=== PATIENT | male | born 1975 | race Caucasian/White ===

== ENCOUNTER 2017-03-14 13:36 | Emergency (ER) | payer SELFPAY ==
[~2017-03-14] VITALS: Ht 175.3 cm; Wt 93.5 kg
[2017-03-14 13:48] VITALS: BP 136/86; PULSE 77; RESP 20; TEMP 97.9; O2SAT 97
[2017-03-14] MEDS ORDERED: TRAZ50TA12 PO (13:58)
[2017-03-14] MEDS ORDERED: INVE1.5T PO (13:58)
--- NOTE | 2017-03-14 14:01 | PD ---
HPI Chief Complaint: Flank/Kidney Pain Time Seen by Provider: 13:52 (Polo Abbasi MD) Travel History International Travel<30 days: No Contact w/Intl Traveler<30days: No Traveled to known affect area: No (Polo Abbasi MD) History of Present Illness HPI 41-year-old male complaining of right-sided chest wall pain. Patient states that he had transient chest wall pain which lasted 2 days last week. Patient states that the right-sided chest wall pain came back again today. Patient states the pain is sharp stabbing pain localized to right chest wall. Patient denies any pain radiation. Patient states the pain is worse with deep breathing and movement of the right upper extremity. Patient denies any shortness of breath. Patient denies any coughing congestion. Patient denies history of COPD or asthma. On a scale of 1-10 the pain is an 8. (Polo Abbasi MD) Allergies-Medications (Allergen,Severity, Reaction): Coded Allergies: No Known Allergies (Unverified , 03/14/17) Reported Meds & Prescriptions Reported Meds & Active Scripts Active Robaxin (Methocarbamol) 750 Mg Tab 750 Mg PO QID Mobic (Meloxicam) 15 Mg Tab 15 Mg PO DAILY Reported Invega (Paliperidone ER) 1.5 Mg Tab 1.5 Mg PO DAILY Trazodone (Trazodone HCl) 50 Mg Tab 200 Mg PO HS (Ese Heck) Review of Systems General / Constitutional: No: Fever Eyes: No: Visual changes HENT: No: Headaches Cardiovascular: Positive: Chest Pain or Discomfort Respiratory: No: Shortness of Breath Gastrointestinal: No: Abdominal Pain Genitourinary: No: Dysuria Musculoskeletal: No: Pain Skin: No Rash Neurologic: No: Weakness Psychiatric: No: Depression Endocrine: No: Polydipsia Hematologic/Lymphatic: No: Easy Bruising (Polo Abbasi MD) Physical Exam Narrative GENERAL: Well-nourished, well-developed patient. SKIN: Focused skin assessment warm/dry. HEAD: Normocephalic. EYES: No scleral icterus. No injection or drainage. NECK: Supple, trachea midline. No JVD or lymphadenopathy. CARDIOVASCULAR: Regular rate and rhythm without murmurs, gallops, or rubs. RESPIRATORY: Breath sounds equal bilaterally. No accessory muscle use. GASTROINTESTINAL: Abdomen soft, non-tender, nondistended. MUSCULOSKELETAL: Patient has moderate tenderness on palpation right chest wall area. No crepitus or deformity noted. Breath sounds equal bilaterally. No rash noted. BACK: Nontender without obvious deformity. No CVA tenderness. Neurologic exam normal. (Polo Abbasi MD) Data Data Last Documented VS Vital Signs Date Time Temp Pulse Resp B/P Pulse Ox O2 Delivery O2 Flow Rate FiO2 03/14/17 14:48 97.9 75 20 129/80 99 Room Air (Ese Heck) Orders Chest, Single Ap (03/14/17 13:55) Ibuprofen (Motrin) (03/14/17 14:45) (Ese Heck) MDM Medical Decision Making Medical Screen Exam Complete: Yes Emergency Medical Condition: Yes Interpretation(s) 1434 PM. Chest x-ray shows no acute pathology. Differential Diagnosis Differential diagnosis including musculoskeletal, pleurisy, pneumothorax, pneumonia, PE Narrative Course 41-year-old male with right-sided chest wall pain. (Polo Abbasi MD) Diagnosis Primary Impression: Chest wall pain Patient Instructions: General Instructions Additional Instructions: Take medications as needed for pain. Follow-up with personal physician. Return if increasing chest pain shortness of breath. Off work today and tomorrow. Med/Other Pt SpecificInfo: Prescription(s) given (Polo Abbasi MD) Scripts Methocarbamol (Robaxin)750 Mg [id number] Mg PO QID #40 TAB Prov:Polo Abbasi MD 03/14/17 Meloxicam (Mobic)15 Mg Tab15 Mg PO DAILY #20 TAB Prov:Polo Abbasi MD 03/14/17 Disposition: 01 DISCHARGE HOME Condition: Stable Polo Abbasi MD March 14, 2017 14:01 Ese Heck March 14, 2017 14:32 Med/Other Pt SpecificInfo: Prescription(s) given (Polo Abbasi MD) Scripts Methocarbamol (Robaxin)750 Mg Nig073 Mg PO QID #40 TAB Prov:Polo Abbasi MD 03/14/17 Meloxicam (Mobic)15 Mg Tab15 Mg PO DAILY #20 TAB Prov:Polo Abbasi MD 03/14/17 Disposition: 01 DISCHARGE HOME Condition: Stable Polo Abbasi MD March 14, 2017 14:01 Ese Heck March 14, 2017 14:32
--- NOTE | 2017-03-14 14:34 | RADRPT ---
EXAM DATE/TIME: 03/14/2017 13:58 [facility] COMPARISON: No previous studies available for comparison. INDICATIONS : Chest pain. MEDICAL HISTORY : None. SURGICAL HISTORY : None. ENCOUNTER: Initial ACUITY: 1 day PAIN SCORE: LOCATION: Right chest FINDINGS: Portable AP view of the chest demonstrates a normal-sized cardiac silhouette. No effusion, consolidat ion, or pneumothorax is visualized. The bones and soft tissues demonstrate no acute abnormality. CONCLUSION: No acute cardiopulmonary abnormality is identified. Jamal Moses MD on March 14, 2017 at 14:32 Board Certified Radiologist. This report was verified electronically.
[2017-03-14] MEDS ORDERED: MOBI15TA PO (14:36)
[2017-03-14] MEDS ORDERED: ROBA750T PO (14:36)
[2017-03-14] MEDS ORDERED: IBUPROFEN 600 MG TAB PO ONE (14:45)
[2017-03-14 14:48] VITALS: BP 129/80; PULSE 75; RESP 20; TEMP 97.9; O2SAT 99
--- NOTE | 2017-03-23 17:46 | PD ---
HPI Chief Complaint: Flank/Kidney Pain Time Seen by Provider: 13:52 Travel History International Travel<30 days: No Contact w/Intl Traveler<30days: No Traveled to known affect area: No History of Present Illness HPI 41-year-old male complains of right-sided chest wall pain. Patient states that he had transient right-sided chest wall pain last week which lasted for 2 days and resolved completely. Patient states that the pain came back again today. Patient states the pain is sharp stabbing pain localized to right chest wall area. Patient denies any pain radiation. Patient states the pain is worse with movement and deep breathing. Patient denies any chest wall injury. Patient denies coughing congestion fever chills. Patient denies any injury to the chest wall. On a scale of 1-10 the pain is an 8. PFSH Past Medical History Psychiatric: Yes (schizoaffective ) Tetanus Vaccination: < 5 Years Influenza Vaccination: No ?: Not Social History Alcohol Use: No Tobacco Use: Yes (quit 8 months ago ) Substance Use: No Allergies-Medications (Allergen,Severity, Reaction): Coded Allergies: No Known Allergies (Unverified , 03/14/17) Reported Meds & Prescriptions Reported Meds & Active Scripts Active Robaxin (Methocarbamol) 750 Mg Tab 750 Mg PO QID Mobic (Meloxicam) 15 Mg Tab 15 Mg PO DAILY Reported Invega (Paliperidone ER) 1.5 Mg Tab 1.5 Mg PO DAILY Trazodone (Trazodone HCl) 50 Mg Tab 200 Mg PO HS Review of Systems General / Constitutional: No: Fever Eyes: No: Visual changes HENT: No: Headaches Cardiovascular: Positive: Chest Pain or Discomfort Respiratory: No: Shortness of Breath Gastrointestinal: No: Abdominal Pain Genitourinary: No: Dysuria Musculoskeletal: No: Pain Skin: No Rash Neurologic: No: Weakness Psychiatric: No: Depression Endocrine: No: Polydipsia Hematologic/Lymphatic: No: Easy Bruising Physical Exam Narrative GENERAL: Well-nourished, well-developed patient. SKIN: Focused skin assessment warm/dry. HEAD: Normocephalic. EYES: No scleral icterus. No injection or drainage. NECK: Supple, trachea midline. No JVD or lymphadenopathy. CARDIOVASCULAR: Regular rate and rhythm without murmurs, gallops, or rubs. RESPIRATORY: Breath sounds equal bilaterally. No accessory muscle use. GASTROINTESTINAL: Abdomen soft, non-tender, nondistended. MUSCULOSKELETAL: No cyanosis, or edema. Patient has mild tenderness on palpation right chest wall area. No crepitus no deformity noted. No rash Noted. Breath sounds equal bilaterally. BACK: Nontender without obvious deformity. No CVA tenderness. Data Data Orders Chest, Single Ap (03/14/17 13:55) Ibuprofen (Motrin) (03/14/17 14:45) MDM Medical Decision Making Medical Screen Exam Complete: Yes Emergency Medical Condition: Yes Differential Diagnosis Differential diagnosis including musculoskeletal, hemopneumothorax, pneumonia. Narrative Course 41-year-old male with right-sided chest wall pain. Diagnosis Primary Impression: Chest wall pain Patient Instructions: General Instructions, Chest Wall Pain (ED) Departure Forms: Work Release, Enter return to work date: Mar 17, 2017 Tests/Procedures Additional Instructions: Take medications as needed for pain. Follow-up with personal physician. Return if increasing chest pain shortness of breath. Off work today and tomorrow. Scripts Methocarbamol (Robaxin)750 Mg Arp748 Mg PO QID #40 TAB Prov:Polo Abbasi MD 03/14/17 Meloxicam (Mobic)15 Mg Tab15 Mg PO DAILY #20 TAB Prov:Polo Abbasi MD 03/14/17 Disposition: 01 DISCHARGE HOME Condition: Stable Polo Abbasi MD Mar 23, 2017 17:46
== END 2017-03-14 14:48 | disposition home or self-care (01) ==
LOC: NEPD 13:36
DX: R07.89 Other chest pain (principal)
CPT/HCPCS: 71010; 99284